=== PATIENT | male | born 1960 | race Caucasian/White ===

== ENCOUNTER 2020-04-16 11:52 | Day surgery (SDC) | payer BC ==
[~2020-04-16] VITALS: Ht 165.1 cm; Wt 78.6 kg
--- NOTE | ~2020-04-16 | OR ---
[facility] [address], [place] [address] Draft DATE OF OPERATION: 04/16/2020 SURGEON: Tico Lindsay MD PREOPERATIVE DIAGNOSES: 1. Distant history of Hill posterior gastropexy for intractable reflux, 2013. 2. History of colonoscopy, 2013. POSTOPERATIVE DIAGNOSES: 1. Intact flap valve. No evidence of distal esophagitis. 2. Mild diffuse gastritis. 3. Diverticulosis of the left colon. No evidence of polyps. PROCEDURES: 1. Esophagogastroduodenoscopy with biopsy. 2. Total colonoscopy to cecum. ANESTHESIA: Intravenous sedation, fentanyl 150 mcg, and Versed 7 mg total. INDICATIONS: This 60-year-old white man is a patient of Nelia Colon from the past and known to me from the past having undergone Hill posterior gastropexy for intractable reflux in 2013. He has no symptoms of reflux, but occasions of epigastric pain, which are benefitted by Tums tablets. He underwent colonoscopy in 2013, which was normal and was recommend to have repeat in 5 to 7 years. He is having no current symptoms of bleeding, diarrhea, or constipation and has no family history of colon cancer. He understands risks of upper endoscopy and colonoscopy and wished to proceed. FINDINGS: Upper endoscopy showed a very intact flap valve. There was mild diffuse gastritis and duodenitis. There was no sign of H. pylori and CLOtest. Esophagus was normal. On colonoscopy, the prep was good. Complete colonoscopy was undertaken of the cecum. There was diverticular change of the sigmoid and left colon. The colon was otherwise normal. DESCRIPTION OF PROCEDURE: The patient was brought to the endoscopy suite and given topical lidocaine spray anesthesia of the hypopharynx, given intravenous sedation to the point of slurred speech PATIENT NAME: PRANAV WALTERS OPERATIVE REPORT DATE OF : 56 REPORT #: [id number] PHYSICIAN: TICO LINDSAY MD PCP: NELIA COLON REPORT IS CONFIDENTIAL AND NOT TO BE RELEASED WITHOUT AUTHORIZATION [facility] [address], [place] [address] Draft and nystagmus with full cardiopulmonary monitoring. A bite block was placed. An Olympus video upper endoscope was passed in the hypopharynx. The vocal cords appeared normal. Scope was advanced to the esophagus throughout its length. It was normal including the distal portion. The scope was advanced to the stomach, which was insufflated with air. Mild diffuse gastritis was noted. Pylorus was normal. Scope was passed through into the duodenum. There was bulbar duodenitis, but the 2nd and 3rd portions were normal. Biopsies were taken of the bulb. Scope was withdrawn. A biopsy was then taken of the antrum for both KHLOE and pathologic testing. Retroflexed view showed an intact flap valve from prior Hill repair. The scope was straightened, withdrawn, and biopsies were then taken of the distal esophagus, which showed no sign of abnormality. Midesophageal biopsies were obtained as well. Scope was removed. Plans were made for colonoscopy. Additional sedation was given. Digital rectal examination performed showing no abnormality. An Olympus video colonoscope was passed in the rectum and manipulated throughout the colon noting numerous diverticula of the sigmoid and left colon. Scope was ultimately advanced to the cecum. Cecum appeared normal. The ileocecal valve and appendiceal orifice were normal. The scope was withdrawn from that point. Examination throughout showed no sign of polyps or colitis, only diverticular changes as previously noted. Retroflexed view was normal as well. The scope was removed and the patient was taken to the recovery room in good condition. CONCLUDING DIAGNOSES: 1. Diffuse gastritis and duodenitis. Treatment with Carafate may be beneficial in his case as he does have occasions of symptoms. 2. Diverticulosis. No polyps. PLAN: To recommend high-fiber diet. If he has problems, he will let me know. We would not recommend colonoscopy for at least 7 to 10 years based on current guidelines, sooner if symptoms should occur of course. He will return to the ongoing care of Nelia Colon. MD VERONICA Abbasi/PRESLEY /[id number] PATIENT NAME: PRANAV WALTERS OPERATIVE REPORT DATE OF : 56 REPORT #: [id number] PHYSICIAN: TICO LINDSAY MD PCP: NELIA COLON REPORT IS CONFIDENTIAL AND NOT TO BE RELEASED WITHOUT AUTHORIZATION [facility] [address] [facility] [place], [place] [address] Draft cc: BENJI Godoy Copies: NELIA COLON ~ PATIENT NAME: SELENAPRANAV HARDIK OPERATIVE REPORT DATE OF : 56 REPORT #: [id number] PHYSICIAN: TICO LINDSAY MD PCP: NELIA COLON REPORT IS CONFIDENTIAL AND NOT TO BE RELEASED WITHOUT AUTHORIZATION
[~2020-04-16 11:52] MED LIST: CALCIUM500 M1 PO; CALCIUM500 MG PO; DILAUDID4 MG PO; FISH OIL 1,0001 EAC2 NG; FISH OIL 1,0001 EAC5 PO; L-ARGININE500 M1 PO; L-ARGININE500 MG PO; MAGNESIUM500 MG PO; MELATONIN5 M2 PO; METOPROLOL SUCC50 MG PO; NASACORT AQ16.5 GM NS; NEXIUM20 MG PO; NIACIN1000 MG PO; PERCOCET 7.5-31 EACH; POTASSIUM GLUCO99 MG PO; VISION VITAMIN1 EACH PO
--- NOTE | 2020-04-16 13:56 | NUR ---
04/16/20 1356 Marilu Patiño 1351- PT ARRIVES TO PACU EASILY AROUSABLE TO VOICE. PT VERY DROWSY AND WILL FALL ASLEEP WHEN NOT BEING TALKED TO. RESP EVEN AND UNLABORED. OXYGEN SAT MID TO HIGH 90'S ON 2L VIA NC. 1354- PT NEEDING TO BE WOKEN UP TO TAKE DEEP BREATHS. PT IS ABLE TO DO THIS.
--- NOTE | 2020-04-18 11:35 | PATH ---
[facility] [address], [place] [address] Signed SPECIMEN(S): A DUODENUM BULB SPECIMEN(S): B ANTRUM SPECIMEN(S): C LOWER ESOPHAGUS SPECIMEN(S): D MIDDLE ESOPHAGUS SPECIMEN SOURCE: A. DUODENUM BULB B. ANTRUM C. LOWER ESOPHAGUS D. MIDDLE ESOPHAGUS CLINICAL HISTORY: GERD, history of colon polyps. Gastritis, duodenitis, diverticula. MICROSCOPIC DESCRIPTION: A, B. Histologic sections of all submitted blocks are examined by light microscopy. These findings, together with the gross examination, support the pathologic diagnosis. C, D. The squamous mucosa contains a mixed inflammatory cell infiltrate composed of lymphocytes and few eosinophils. Though eosinophils are present, they are not increased and are in quantities compatible with reflux esophagitis. NAL:cml FINAL PATHOLOGIC DIAGNOSIS: A. Duodenum, bulb, biopsy: - Duodenal mucosa with changes of peptic duodenitis. - Negative for increased epithelial lymphocytes. - Negative for dysplasia or malignancy. B. Stomach, antrum, biopsy: - Oxyntic mucosa with minimal chronic, inactive gastritis. - Negative for Helicobacter organisms on HE stain. - Negative for dysplasia or malignancy. C. Esophagus, lower, biopsy: - Squamous mucosa with mild chronic inflammation and reactive changes, consistent with reflux esophagitis. - Negative for intestinal metaplasia, dysplasia, or malignancy. D. Esophagus, mid, biopsy: - Squamous mucosa with mild chronic inflammation and reactive changes. - Negative for increased intraepithelial eosinophils. - Negative for dysplasia or malignancy. NAL:cml:[id number] PATIENT NAME: PRANAV WALTERS PATHOLOGY DATE OF : 56 REPORT #: [id number] PHYSICIAN: KARON WHITLEY PCP: NELIA COLON REPORT IS CONFIDENTIAL AND NOT TO BE RELEASED WITHOUT AUTHORIZATION [facility] [address], [place] [address] Signed GROSS DESCRIPTION: Four specimens are received in four containers, labeled "MP." A. The specimen, labeled "MP, 1," and designated on the requisition "duodenum bulb biopsy," is received in formalin and consists of one vaca soft tissue fragment that measures 0.4 cm in greatest dimension. The specimen is entirely submitted in cassette (A1). B. The specimen, labeled "MP, 2," and designated on the requisition "antrum biopsy," is received in formalin and consists of one elongated, vaca soft tissue fragment that measures 0.6 cm in greatest dimension. The specimen is entirely submitted in cassette (B1). C. The specimen, labeled "MP, 3," and designated on the requisition "lower esophagus biopsy," is received in formalin and consists of one vaca-white soft tissue fragment that measures 0.4 cm in greatest dimension. The specimen is entirely submitted in cassette (C1). D. The specimen, labeled "MP, 4," and designated on the requisition "middle esophagus biopsy," is received in formalin and consists of two vaca-white soft tissue fragments that measure 0.3 and 0.4 cm in greatest dimension. The specimen is entirely submitted in cassette (D1). AI (under the direct supervision of a pathologist) The Gross Description was prepared using a voice recognition system. The report was reviewed for accuracy; however, sound-alike word errors, addition and/or deletions may occur. If there is any question about this report, please contact Client Services. PERFORMING LABORATORY: The technical component was performed by [facility], [address] [place] [id number] (Gun Stocker: Margaret So MD; CLIA# [id number]). Professional interpretation was performed by [facility], [facility], [address] [place] [id number] (CLIA# [id number]). Diagnostician: Yaneth Greene MD Pathologist Electronically Signed 04/18/2020 Copies: ~ PATIENT NAME: PRANAV WALTERS PATHOLOGY DATE OF : 56 REPORT #: [id number] PHYSICIAN: [facility] PATH[facility] PCP: NELIA COLON REPORT IS CONFIDENTIAL AND NOT TO BE RELEASED WITHOUT AUTHORIZATION
== END 2020-04-16 14:40 | disposition home or self-care (01) ==
LOC: DS 11:52 → OPS 11:52 → DS 13:00 → OPS 13:00
PROVIDERS: ATTEND Surgery
PROC: 0DJD8ZZ Inspection of Lower Intestinal Tract, Via Natural or Artificial Opening Endoscopic (ICD-10-PCS; 2020-04-16)
PROC: 0DB78ZX Excision of Stomach, Pylorus, Via Natural or Artificial Opening Endoscopic, Diagnostic (ICD-10-PCS; 2020-04-16)
PROC: 0DB98ZX Excision of Duodenum, Via Natural or Artificial Opening Endoscopic, Diagnostic (ICD-10-PCS; principal; 2020-04-16 13:00)
PROC: 0DB28ZX Excision of Middle Esophagus, Via Natural or Artificial Opening Endoscopic, Diagnostic (ICD-10-PCS; 2020-04-16 13:00)
DX: Z12.11 Encounter for screening for malignant neoplasm of colon (principal); K29.80 Duodenitis without bleeding; K29.60 Other gastritis without bleeding; K57.30 Diverticulosis of large intestine without perforation or abscess without bleeding; J44.9 Chronic obstructive pulmonary disease, unspecified; K46.9 Unspecified abdominal hernia without obstruction or gangrene; K40.90 Unilateral inguinal hernia, without obstruction or gangrene, not specified as recurrent; F32.9 Major depressive disorder, single episode, unspecified; K21.9 Gastro-esophageal reflux disease without esophagitis; I10 Essential (primary) hypertension; G47.30 Sleep apnea, unspecified; Z87.19 Personal history of other diseases of the digestive system; Z98.890 Other specified postprocedural states
CPT/HCPCS: 99153; G0500; J2250; J3010; J7121